=== PATIENT | female | born 1990 ===

== ENCOUNTER 2017-09-26 23:55 | Observation (INO) | payer OTHER ==
[~2017-09-26] VITALS: Ht 165.1 cm; Wt 64.9 kg
[2017-09-27] VITALS (12 sets, daily range): BP systolic 80–127; BP diastolic 50–84; PULSE 58–107; TEMP 98.4–98.9
[2017-09-27] MEDS ORDERED: IBU800 M1 PO (01:24)
[2017-09-27] MEDS ORDERED: PRENATAL1 TA7 PO (01:26)
[2017-09-27] MEDS ORDERED: TYLENOL 325MG325 MG PO (01:26)
[2017-09-27] MEDS ORDERED: COLACE 100100 MG/CAP PO (01:27)
[2017-09-27] MEDS ORDERED: FIORICET 325 MG1 TA1 PO (01:28)
== END 2017-09-27 18:50 | disposition home or self-care (01) ==
LOC: MEDICAL 23:59 → SURG 09-27 00:53
DX: N20.1 Calculus of ureter (principal); G43.909 Migraine, unspecified, not intractable, without status migrainosus
CPT/HCPCS: C1769; C2617; G0378; J0690; J1100; J1885; J2270; J2405; J2704; J3010; J7030; Q9967